=== PATIENT | male | born 1965 | race Hispanic/Latino ===

== ENCOUNTER 2020-07-11 16:32 | Emergency (ER) | payer OTHER ==
[2020-07-11 17:18] LABS: Absolute Lymphocytes (CBC) 1.7 K/uL (0.7-4.9); Basophils % 1.2 % (0-1.3); Hematocrit 43.9 % (39.6-49.0); Lymphocytes % 21.7 % (15.3-44.8); MPV 11.2 fL (7.6-11.3); RBC Red Blood Cell Count 4.84 M/uL (4.33-5.43)
[2020-07-11 17:19] LABS: Protime INR 1.03
--- NOTE | 2020-07-11 17:24 | RAD REPORT ---
EXAM DESCRIPTION: RAD - Chest Single View - 07/11/2020 5:14 pm CLINICAL HISTORY: COUGH Chest pain. COMPARISON: No comparisons FINDINGS: Portable technique limits examination quality. The lungs are grossly clear. The heart is normal in size. No displaced fractures. IMPRESSION: No acute intrathoracic process suspected.
[2020-07-11] MEDS ORDERED: AMLODIPINE 5 MG TAB ONE (17:55)
[2020-07-11 17:59] LABS: ALT/SGPT 30 U/L (12-78); Albumin 4.2 g/dL (3.4-5.0); Alkaline Phosphatase 103 U/L (45-117); BUN Blood Urea Nitrogen 15 mg/dL (7-18); Bicarbonate 27 mmol/L (21-32); Bilirubin Direct < 0.1 mg/dL (0-0.2); Bilirubin Total 0.3 mg/dL (0.2-1.0); Glucose Level 140 mg/dL (74-106); NT PRO-BNP 23 pg/mL (<125); Protein, Total 8.2 g/dL (6.4-8.2); Sodium Level 142 mmol/L (136-145); Troponin (Emerg Dept Use Only) < 0.02 ng/mL (0.0-0.045)
[2020-07-11 18:00] LABS: AST/SGOT 17 U/L (15-37); Magnesium 2.5 mg/dL (1.8-2.4); Potassium 4.2 mmol/L (3.5-5.1)
[2020-07-11 18:19] LABS: Urine Blood TRACE (NEG); Urine Glucose NEGATIVE (NEG); Urine Protein NEGATIVE (NEG); Urine Specific Gravity 1.025 (1.005-1.030); Urine pH 7.5 (5.0-7.0)
--- NOTE | 2020-07-11 18:21 | EDPHYS ---
Physician Documentation [facility] Name: Christoph Lunsford Age: 54 yrs Sex: Male : 1965 Arrival Date: 07/11/2020 Time: 16:35 Bed 8 Private MD: CARYL Physician Sergio Vela HPI: 07/11 17:12 This 54 yrs old Male presents to ER via Ambulatory with complaints of High melanie Blood Pressure. 17:12 The patient has elevated blood pressure and discovered this at home. Onset: The melanie symptoms/episode began/occurred 2 day(s) ago. Modifying factors: The symptoms are aggravated by activity, The symptoms are alleviated by remaining still. Associated signs and symptoms: The patient has no apparent associated signs or symptoms. The patient has experienced similar episodes in the past, several times. Historical: - Allergies: 16:50 No Known Allergies; ll1 - PMHx: 16:50 Hypertension; High Cholesterol; ll1 - PSHx: 16:50 None; ll1 - Immunization history:: Flu vaccine is not up to date. - Social history:: Smoking status: Patient denies any tobacco usage or history of. ROS: 17:17 Constitutional: Negative for fever, chills, and weight loss, Neck: Negative for injury, melanie pain, and swelling, Cardiovascular: Negative for chest pain, palpitations, and edema, Respiratory: Negative for shortness of breath, cough, wheezing, and pleuritic chest pain, Abdomen/GI: Negative for abdominal pain, nausea, vomiting, diarrhea, and constipation, Back: Negative for injury and pain, : Negative for injury, bleeding, discharge, and swelling, MS/Extremity: Negative for injury and deformity, Skin: Negative for injury, rash, and discoloration, Neuro: Negative for headache, weakness, numbness, tingling, and seizure, Psych: Negative for depression, anxiety, suicide ideation, homicidal ideation, and hallucinations, Allergy/Immunology: Negative for hives, rash, and allergies, Endocrine: Negative for neck swelling, polydipsia, polyuria, polyphagia, and marked weight changes, Hematologic/Lymphatic: Negative for swollen nodes, abnormal bleeding, and unusual bruising. 17:17 Eyes: Positive for of the outer aspect of conjuctiva of right eye, right lateral coreen. Exam: 17:17 Constitutional: This is a well developed, well nourished patient who is awake, alert, melanie and in no acute distress. Head/Face: Normocephalic, atraumatic. Neck: Trachea midline, no thyromegaly or masses palpated, and no cervical lymphadenopathy. Supple, full range of motion without nuchal rigidity, or vertebral point tenderness. No Meningismus. Chest/axilla: Normal chest wall appearance and motion. Nontender with no deformity. No lesions are appreciated. Cardiovascular: Regular rate and rhythm with a normal S1 and S2. No gallops, murmurs, or rubs. Normal PMI, no JVD. No pulse deficits. Respiratory: Lungs have equal breath sounds bilaterally, clear to auscultation and percussion. No rales, rhonchi or wheezes noted. No increased work of breathing, no retractions or nasal flaring. Abdomen/GI: Soft, non-tender, with normal bowel sounds. No distension or tympany. No guarding or rebound. No evidence of tenderness throughout. Back: No spinal tenderness. No costovertebral tenderness. Full range of motion. Male : Normal genitalia with no discharge or lesions. Skin: Warm, dry with normal turgor. Normal color with no rashes, no lesions, and no evidence of cellulitis. MS/ Extremity: Pulses equal, no cyanosis. Neurovascular intact. Full, normal range of motion. Neuro: Awake and alert, GCS 15, oriented to person, place, time, and situation. Cranial nerves II-XII grossly intact. Motor strength 5/5 in all extremities. Sensory grossly intact. Cerebellar exam normal. Normal gait. Psych: Awake, alert, with orientation to person, place and time. Behavior, mood, and affect are within normal limits. 17:17 Eyes: Sclera: right lateral small coreen. 17:39 ECG was reviewed by the Attending Physician. [facility] Vital Signs: 16:50 BP 176 / 97; Pulse 95; Resp 17; Temp 98.8; Pulse Ox 97% on R/A; Weight 63.5 kg; Height ll1 5 ft. 4 in. (162.56 cm); Pain 0/10; 17:37 BP 177 / 87; Pulse 101 MON; Resp 18; Pulse Ox 96% on R/A; sv 17:54 BP 159 / 97; Pulse 97; Resp 16; Pulse Ox 96% on R/A; sv 18:48 BP 167 / 98; Pulse 100; Resp 18; Pulse Ox 98% ; sv 16:50 Body Mass Index 24.03 (63.50 kg, 162.56 cm) ll1 17:37 Sinus tachycardia sv MDM: 16:54 Patient medically screened. melanie 17:37 Differential diagnosis: hypertensive crisis, Malignant HTN. Data reviewed: vital signs, [facility] nurses notes, lab test result(s), EKG, radiologic studies, plain films. Data interpreted: slunk skinner: rate is 96 beats/min, rhythm is regular, Pulse oximetry: on room air is 96 %. Test interpretation: by ED physician or midlevel provider: ECG, plain radiologic studies. Counseling: I had a detailed discussion with the patient and/or guardian regarding: the historical points, exam findings, and any diagnostic results supporting the discharge/admit diagnosis, lab results, radiology results, the need for outpatient follow up, for definitive care, a solar photovoltaic electrician, a family practitioner. 07/11 16:56 Order name: Basic Metabolic Panel; Complete Time: 18:04 [facility] 07/11 16:56 Order name: CBC with Diff; Complete Time: 17:38 [facility] 07/11 16:56 Order name: LFT's; Complete Time: 18:04 [facility] 07/11 16:56 Order name: Magnesium; Complete Time: 18:04 [facility] 07/11 16:56 Order name: NT PRO-BNP; Complete Time: 18:04 [facility] 07/11 16:56 Order name: PT-INR; Complete Time: 17:38 [facility] 07/11 16:56 Order name: Troponin (emerg Dept Use Only); Complete Time: 18:04 [facility] 07/11 16:56 Order name: XRAY Chest (1 view); Complete Time: 17:38 [facility] 07/11 16:56 Order name: EKG; Complete Time: 16:57 [facility] 07/11 16:56 Order name: Cardiac monitoring; Complete Time: 17:10 [facility] 07/11 16:56 Order name: EKG - Nurse/Tech; Complete Time: 17:10 [facility] 07/11 18:15 Order name: Urine Dipstick--Ancillary (enter results) 07/11 18:16 Order name: Urine Dipstick-Ancillary; Complete Time: 18:20 EDMS 07/11 16:56 Order name: IV Saline Lock; Complete Time: 17:10 [facility] 07/11 16:56 Order name: Labs collected and sent; Complete Time: 17:10 [facility] 07/11 16:56 Order name: O2 Per Protocol; Complete Time: 17:10 [facility] 07/11 16:56 Order name: O2 Sat Monitoring; Complete Time: 17:10 [facility] 07/11 17:12 Order name: Urine Dipstick-Ancillary (obtain specimen); Complete Time: 18:12 [facility] EC:39 Rate is 95 beats/min. Rhythm is regular. QRS [place] is Normal. [place] interval is normal. QRS melanie interval is normal. QT interval is normal. No Q waves. T waves are Normal. No ST changes noted. Clinical impression: NSR w/ Non-specific ST/T Changes and No evidence of ischemia. Interpreted by me. Reviewed by me. Administered Medications: 17:40 Drug: Norvasc 5 mg Route: PO; sv 18:12 Follow up: Response: No adverse reaction sv Disposition: 07/11/20 18:20 Discharged to Home. Impression: Essential (primary) hypertension, Ocular pain, right eye - right lateral subconjnctival hemorrhage, Dental caries - 2 teeth extracted, yesterday. - Condition is Stable. - Discharge Instructions: Dental Pain, Hypertension, Hypertension, [id number], Dental Pain, [id number]. - Prescriptions for Norvasc 5 mg Oral Tablet - take 1 tablet by ORAL route once daily; 20 tablet. - Medication Reconciliation Form, Thank You Letter, Antibiotic Education, Prescription Opioid Use form. - Follow up: Private Physician; When: 2 - 3 days; Reason: Recheck today's complaints, Continuance of care, Re-evaluation by your physician. Follow up: Jaya Jacobsen; When: 2 - 3 days; Reason: Recheck today's complaints, Re-evaluation by your physician. - Problem is new. - Symptoms have improved. Signatures: Dispatcher [employer] Bianca Quiros RN RN sv Anderson, Corey, MD MD cha Lewis, Lynsay, RN RN ll1 Corrections: (The following items were deleted from the chart) 18:55 18:20 07/11/2020 18:20 Discharged to Home. Impression: Essential (primary) sv hypertension; Ocular pain, right eye - right lateral subconjnctival hemorrhage; Dental caries - 2 teeth extracted, yesterday. Condition is Stable. Discharge Instructions: Dental Pain, Hypertension, Hypertension, Walg-ve-Vmmd, Dental Pain, Kyyo-zy-Bbnm. Prescriptions for Norvasc 5 mg Oral Tablet - take 1 tablet by ORAL route once daily; 20 tablet. and Forms are Medication Reconciliation Form, Thank You Letter, Antibiotic Education, Prescription Opioid Use. Follow up: Private Physician; When: 2 - 3 days; Reason: Recheck today's complaints, Continuance of care, Re-evaluation by your physician. Follow up: Jaya Jacobsen; When: 2 - 3 days; Reason: Recheck today's complaints, Re-evaluation by your physician. Problem is new. Symptoms have improved. melanie
--- NOTE | 2020-07-11 18:21 | ER ---
Nurse's Notes [facility] Name: Christoph Lunsford Age: 54 yrs Sex: Male : 1965 Arrival Date: 07/11/2020 Time: 16:35 Bed 8 Private MD: Diagnosis: Essential (primary) hypertension;Ocular pain, right eye-right lateral subconjnctival hemorrhage;Dental caries-2 teeth extracted, yesterday Presentation: 07/11 16:50 Chief complaint: Patient states: BP has been elevated for 2 days. BP 160/101 at home. ll1 No SMITH or dizziness. States his R eye is red since yesterday after a nap. Had 2 teeth pulled from left lower jaw yesterday morning. States the site was bleeding all night. Coronavirus screen: Client denies travel out of the [place] in the last 14 days. At this time, the client does not indicate any symptoms associated with coronavirus-19. Ebola Screen: Patient denies travel to an Ebola-affected area in the 21 days before illness onset. Initial Sepsis Screen: Does the patient meet any 2 criteria? HR > 90 bpm. No. Patient's initial sepsis screen is negative. Does the patient have a suspected source of infection? No. Patient's initial sepsis screen is negative. Risk Assessment: Do you want to hurt yourself or someone else? Patient reports no desire to harm self or others. Onset of symptoms was July 10, 2020. 16:50 Method Of Arrival: Ambulatory ll1 16:50 Acuity: KITA 3 ll1 Historical: - Allergies: 16:50 No Known Allergies; ll1 - PMHx: 16:50 Hypertension; High Cholesterol; ll1 - PSHx: 16:50 None; ll1 - Immunization history:: Flu vaccine is not up to date. - Social history:: Smoking status: Patient denies any tobacco usage or history of. Screenin:55 Abuse screen: Denies threats or abuse. Denies injuries from another. Nutritional sv screening: No deficits noted. Tuberculosis screening: No symptoms or risk factors identified. Fall Risk None identified. Assessment: 17:00 General: Appears in no apparent distress. comfortable, well developed, Behavior is sv calm, cooperative, appropriate for age. Pain: Denies pain. Neuro: Level of Consciousness is awake, alert, obeys commands, Oriented to person, place, time, situation, Moves all extremities. Full function Gait is steady, Speech is normal. Cardiovascular: Patient's skin is warm and dry. Rhythm is sinus tachycardia. Respiratory: Airway is patent Respiratory effort is even, unlabored, Respiratory pattern is regular, symmetrical. Derm: Skin is intact, Skin is pink, warm \T\ dry. Musculoskeletal: Range of motion: intact in all extremities. 18:00 Reassessment: Patient appears in no apparent distress at this time. No changes from sv previously documented assessment. Patient and/or family updated on plan of care and expected duration. Pain level reassessed. Patient is alert, oriented x 3, equal unlabored respirations, skin warm/dry/pink. 18:54 Reassessment: Patient appears in no apparent distress at this time. No changes from sv previously documented assessment. Patient and/or family updated on plan of care and expected duration. Pain level reassessed. Patient is alert, oriented x 3, equal unlabored respirations, skin warm/dry/pink. Vital Signs: 16:50 BP 176 / 97; Pulse 95; Resp 17; Temp 98.8; Pulse Ox 97% on R/A; Weight 63.5 kg; Height ll1 5 ft. 4 in. (162.56 cm); Pain 0/10; 17:37 BP 177 / 87; Pulse 101 MON; Resp 18; Pulse Ox 96% on R/A; sv 17:54 BP 159 / 97; Pulse 97; Resp 16; Pulse Ox 96% on R/A; sv 18:48 BP 167 / 98; Pulse 100; Resp 18; Pulse Ox 98% ; sv 16:50 Body Mass Index 24.03 (63.50 kg, 162.56 cm) ll1 17:37 Sinus tachycardia sv ED Course: 16:35 Patient arrived in ED. ds1 16:49 Arm band placed on. ll1 16:53 Triage completed. ll1 16:54 Sergio Vela MD is Attending Physician. [facility] 16:55 Bianca Wetzel, ANNA is Primary Nurse. sv 16:55 Patient has correct armband on for positive identification. Bed in low position. Call sv light in reach. Door closed. Head of bed elevated. 16:59 ED physician to see patient. sv 17:05 Inserted saline lock: 20 gauge in right antecubital area, using aseptic technique. sv Blood collected. Flushed right antecubital with 5 ml normal saline. 17:09 EKG done, by ED staff, reviewed by Sergio Vela MD. sv 17:11 XRAY Chest (1 view) Sent. sv 17:11 X-ray(s) taken. sv 17:14 XRAY Chest (1 view) In Process Unspecified. EDMS 18:16 Urine Dipstick--Ancillary (enter results) Sent. sv 18:20 Jaya Jacobsen MD is Referral Physician. melanie 18:54 No provider procedures requiring assistance completed. IV discontinued, intact, sv bleeding controlled, No redness/swelling at site. Pressure dressing applied. Administered Medications: 17:40 Drug: Norvasc 5 mg Route: PO; sv 18:12 Follow up: Response: No adverse reaction sv Outcome: 18:20 Discharge ordered by . melanie 18:54 Discharged to home ambulatory. sv 18:54 Condition: stable 18:54 Discharge instructions given to patient, Instructed on discharge instructions, follow up and referral plans. medication usage, Demonstrated understanding of instructions, follow-up care, medications, Prescriptions given X 1. 18:55 Patient left the ED. sv Signatures: Dispatcher [employer] Bianca Quiros RN RN sv Anderson, Corey, MD MD cha Sanford, Demi ds1 Yvette Gomes RN RN ll1
[2020-07-11 19:00] VITALS: TEMP 98.8
[2020-07-11 19:03] VITALS: BP 167/98; O2SAT 98
== END 2020-07-11 18:55 | disposition home or self-care (01) ==
LOC: ER 16:32
DX: I10 Essential (primary) hypertension (principal); H11.31 Conjunctival hemorrhage, right eye; K02.9 Dental caries, unspecified; Z98.890 Other specified postprocedural states
CPT/HCPCS: 36415; 71045; 80048; 80076; 81003; 83735; 83880; 84484; 85025; 85610; 99284

== ENCOUNTER 2023-08-30 08:49 | Day surgery (SDC) | payer OTHER ==
[2023-08-25 15:38] LABS: Absolute Basophils 0.1 K/uL (0-0.5); Absolute Eosinophils 0.2 K/uL (0-0.5); Absolute Lymphocytes (CBC) 1.6 K/uL (0.7-4.9); Absolute Monocytes 0.5 K/uL (0.1-1.3); Absolute Neutrophil 3.9 K/uL (1.8-8.0); Basophils % 1.2 % (0-1.3); Eosinophils % 2.7 % (0-4.4); Hematocrit 42.9 % (39.6-49.0); Hemoglobin 14.6 g/dL (13.6-17.9); Lymphocytes % 26.3 % (15.3-44.8); MCH 30.9 pg (27.0-35.0); MCHC 34.1 g/dL (32.0-36.0); MCV 90.4 fL (80-100); MPV 10.9 fL (7.6-11.3); Monocytes % 7.5 % (3.3-12.3); Neutrophils % 62.3 % (41.7-73.7); Platelets 178 thou/uL (152-406); RBC Red Blood Cell Count 4.74 M/uL (4.33-5.43); Red Cell Distribution Width 12.6 % (12.1-15.2)
--- NOTE | 2023-08-25 15:55 | RAD REPORT ---
EXAM DESCRIPTION: RAD - Chest Pa And Lat (2 Views) - 08/25/2023 3:36 pm CLINICAL HISTORY: pre op for surgery Chest pain. COMPARISON: Chest Single View dated 07/11/2020 FINDINGS: The lungs are clear. The heart is normal in size. No displaced fractures. IMPRESSION: No acute or concerning finding suspected. The USPSTF recommends annual screening for lung cancer with low-dose CT (LDCT) in adults aged 50 to 80 years who have a 20 pack-year smoking history and currently smoke or have quit within the past 15 years.
[2023-08-25 15:58] LABS: Albumin 4.1 g/dL (3.4-5.0); Albumin/Globulin Ratio 1.2 (1.1-1.8); Anion Gap 8.1 mEq/L (5.0-15.0); Bilirubin Direct 0.1 mg/dL (0-0.2); Bilirubin Indirect, Calculated 0.4 mg/dL (0.2-0.8); Bilirubin Total 0.5 mg/dL (0.2-1.0); Globulin 3.4 g/dL (2.3-3.5); Potassium 4.1 mEq/L (3.5-5.1); Protein, Total 7.5 g/dL (6.4-8.2)
--- NOTE | 2023-08-28 13:47 | EKG ---
Test Date: 2023-08-25 Test Time: 15:23:51 Hospice Educator: DELILAH MEASUREMENT RESULTS: Intervals: Rate: 70 CA: 162 QRSD: 132 QT: 416 QTc: 449 [place]: P: 46 CA: 162 QRS: -4 T: 4 INTERPRETIVE STATEMENTS: Normal sinus rhythm Right bundle branch block Inferior infarct, age undetermined Abnormal ECG Compared to ECG 07/11/2020 17:08:24 No significant changes Electronically Signed On 08-28-23 13:38:27 CDT by Marcio Rowell
[2023-08-30] MEDS ORDERED: dexAMETHasone 10 MG/ML VIAL ONE (09:17)
[2023-08-30] MEDS ORDERED: propofoL 200 MG/20 ML VIAL IV ONE (09:17)
[2023-08-30] MEDS ORDERED: ONDANSETRON 4 MG/2 ML VIAL ONE (09:17)
[2023-08-30] MEDS ORDERED: MIDAZOLAM HCL 2 MG/2 ML INJ ONE (09:17)
[2023-08-30] MEDS ORDERED: FENTANYL CITR 100 MCG/2 ML ONE (09:17)
[2023-08-30] MEDS ORDERED: KETOROLAC 30 MG/ML INJ ONE (09:17)
[2023-08-30] MEDS ORDERED: LIDOCAINE 2% MPF 5 ML VIAL ONE (09:18)
[2023-08-30] MEDS ORDERED: ROCURONIUM 50 MG/5 ML VIAL IV ONE (09:18)
[2023-08-30] MEDS: NA CHLORIDE 0.9% 1,000 ML ONE (09:40)
--- NOTE | 2023-08-30 11:01 | P.BOP ---
Preoperative diagnosis: Symptomatic cholelithiasis, cholecystitis, adenomyosis of glallblader Postoperative diagnosis: same Primary procedure: Laparoscopic cholecystectomy Estimated blood loss: <10cc Specimen: gb Findings: as above Anesthesia: General Complications: None Transferred to: Recovery Room Condition: Good
[2023-08-30] MEDS: CEFOXITIN SODIUM 1 GM/VIAL ONE (11:18)
[2023-08-30] MEDS: HYDROMORPHONE HCL 1 MG/ML INJ ONE ×2 (12:10→12:20)
[2023-08-30 13:17] VITALS: TEMP 97.2
[2023-08-30] MEDS: CODEINE 30MG/APAP 300MG TAB ONE (13:50)
--- NOTE | 2023-08-30 14:30 | OP ---
Date of Procedure: 08/30/2023 Surgeon: Gutierrez Barger MD Preoperative Diagnoses: Symptomatic cholelithiasis, cholecystitis, possible adenomyosis of the gallb ladder. Postoperative Diagnoses: Symptomatic cholelithiasis, cholecystitis, possible adenomyosis of the gall bladder. Procedure: Laparoscopic cholecystectomy. Anesthesia: General plus local. Estimated Blood Loss: Less than 10 cc. Specimen: Gallbladder and stone. Findings: As above. Indication: This is a case of a 57-year-old patient who came to us with biliary colic, also have sto jose in the gallbladder plus some thickening of the gallbladder, probably adenomyosis, they cannot rul e that out completely. So we are going to send the gallbladder for biopsy. The benefits, alternativ es, and risks of laparoscopic, possible open cholecystectomy were fully explained, which include, but not limited to, infection, bleeding, damage to adjacent structures, anesthesia complication, choledo cholithiasis, bile leak, pancreatitis, OK, and even . They also understood this may not relieve any symptoms. He might need more than one surgical intervention. He understood, signed a consent. Description Of Procedure: Patient was brought to the operating room, placed in supine position. Ane sthesia was done without complication. Abdominal area was prepped and draped in the usual sterile fa shion. Marcaine 0.5% was injected for local anesthetic followed by sharp incision of the skin in the infraumbilical region. Incision was carried down to fascia, which was opened under direct vision. Peritoneum was encountered, opened under direct vision. Vicryl #1 placed inside the fascia. Thiago trocar was carefully introduced. Pneumoperitoneum was obtained. I placed 3 more trocars, 5 mm each one of them, 1 in epigastric area, 2 in the right upper quadrant under sterile conditions under direc t visualization. This allowed me to visualize the area of the gallbladder. I do not see any masses in the gallbladder or on the liver. There was like a large stone inside with thickening gallbladder wall. So I put a grasper in the fundus of the gallbladder, another grasper in the infundibulum, retr acting the gallbladder in the inferolateral fashion exposing the triangle of Calot, obtaining critica l view. Cystic duct and cystic artery were clearly isolated, freed circumferentially and a connectio n between those and the gallbladder were clearly identified. I proceeded to ligate those by using at least 3 clips proximal, 1 clip distal, ligation in the middle. Same was done with the cystic artery . No bile leak. No bleeding. The gallbladder was removed from liver using Bovie cauterizer and rem tiffany from abdominal cavity using EndoCatch through the umbilical incision. Umbilical incision had to be extended since the gallbladder stone was so large, it did not come through the umbilical area. O nce we have that, we proceeded to put the cameras back on, checked for hemostasis, irrigated the area and no bile leak. No bleeding. At that moment, I proceeded to remove the trocars under direct visi on, deflated pneumoperitoneum, closed the fascia with #1 Vicryl. We once again have to add some more sutures in the fascial edges of the umbilical area since it had to be extended to allow the gallblad bren to come out. Then, after that, 3-0 chromic for the subcutaneous tissue and jose for the skin. Sponge counts and instrument counts were correct. Patient tolerated the procedure well. Patient w as sent to Recovery in stable condition. SHANNON/AGGIE Voice ID: [id number] Report ID: [id number]
--- NOTE | 2023-08-30 14:33 | DS ---
Diagnosis: Symptomatic cholelithiasis. Procedure: Laparoscopic cholecystectomy. Condition: Stable. Disposition: Home. Activity: As tolerated. No heavy lifting. Plan: Follow up in my office in 1 week. Call for an appointment at [phone]. Keep area dry for 48 hours, then may shower. Then, after that may clean the staple with soap and water and Neosporin over the area. ROSALINDA Voice ID: [id number] Report ID: [id number]
[2023-08-30 14:53] VITALS: BP 135/84; O2SAT 97
== END 2023-08-30 14:15 | disposition home or self-care (01) ==
LOC: OR 08:49
PROVIDERS: ATTEND Surgery
PROC: 0FT44ZZ Resection of Gallbladder, Percutaneous Endoscopic Approach (ICD-10-PCS; principal; 2023-08-30 11:30)
DX: K80.10 Calculus of gallbladder with chronic cholecystitis without obstruction (principal); I10 Essential (primary) hypertension; E78.5 Hyperlipidemia, unspecified; R73.03 Prediabetes; K21.9 Gastro-esophageal reflux disease without esophagitis; R94.31 Abnormal electrocardiogram [ECG] [EKG]
CPT/HCPCS: 93005; 85025; 80048; 36415 ×2; 82947 ×2; 80076; 88304; 83690; 71046; 47562; J2704; J2001; J2250; J3010; J1100; J1170 ×2; J0694; J2405; J7030